=== PATIENT | male | born 1980 | race Two or more races ===

== ENCOUNTER 2020-12-11 08:26 | Emergency (ER) | payer SELFPAY ==
[~2020-12-11] VITALS: Ht 180.3 cm; Wt 90.7 kg
[2020-12-11] MEDS ORDERED: ALBUTEROL SULF 2.5 MG/0.5ML(0.5%) NEB SOLN HHN STA (08:27)
[2020-12-11 08:28] VITALS: BP 141/88
[2020-12-11] MEDS ORDERED: IPRATROPIUM BROM 0.5 MG/2.5ML INH SOL NEB ONE (08:30)
== END 2020-12-11 10:16 | disposition home or self-care (01) ==
LOC: ER 08:26
DX: J45.909 Unspecified asthma, uncomplicated (principal)
CPT/HCPCS: 71045; 94640; 99283; J7644